=== PATIENT | female | born 1980 | race Caucasian/White ===

== ENCOUNTER 2023-10-15 21:48 | Emergency (ER) | payer SELFPAY ==
[~2023-10-15] VITALS: Ht 157.5 cm; Wt 88.2 kg
[~2023-10-15 21:48] MED LIST: NORCO 325 MG-51 TAB PO; ZOFRAN ODT4 MG PO
[2023-10-15 22:04] VITALS: TEMP 98
[2023-10-15] MEDS ORDERED: Ondansetron 4 MG/2 ML VIAL IV ONE (23:45)
[2023-10-15] MEDS ORDERED: Ketorolac 15 MG/ML VIAL IV ONE (23:45)
[2023-10-16 00:04] LABS: COLLECTION METHOD CLEAN CATCH
[2023-10-16 00:27] LABS: BASO % 0.5 % (0.0-2.0); EOS # 0.5 K/mm3 (0.0-0.7); EOS % 8.2 % (0.0-4.0); GRAN # 2.9 K/mm3 (1.4-6.5); GRAN % 46.9 % (42.2-75.2); HEMATOCRIT 37.8 % (37.0-47.0); HEMOGLOBIN 12.8 g/dl (12.5-16.0); LYMPH # 2.4 K/mm3 (1.2-3.4); LYMPH % 39.3 % (20.0-51.0); MEAN CELL VOLUME 94 fl (80.0-100.0); MEAN CORPUSCULAR HEMOGLOBIN 32 pg (27-31); MEAN CORPUSCULAR HGB CONC 34 g/dl (33.0-37.0); MEAN PLATELET VOLUME 9.8 fl (7.4-10.4); MONO # 0.3 K/mm3 (0.1-0.6); MONO % 4.8 % (1.7-9.3); PLATELET COUNT 198 K/mm3 (130-400); RED BLOOD COUNT 4.04 M/mm3 (4.10-5.30); REDCELL DISTRIBUTION WIDTH-CV 12.4 % (11.5-14.5)
[2023-10-16 00:43] LABS: ALBUMIN 3.8 g/dL (3.5-5.0); BILIRUBIN,TOTAL 0.3 mg/dL (0.2-1.2); CALCIUM 8.7 mg/dL (8.4-10.2); CREATININE, serum 0.81 mg/dL (0.57-1.11); POTASSIUM 3.7 mEq/L (3.5-4.5); TOTAL PROTEIN 7.3 g/dl (6.2-8.1)
[2023-10-16 00:54] LABS: URINE APPEARANCE CLEAR (CLEAR/HAZY); URINE BLOOD 2+ (NEGATIVE); URINE COLOR YELLOW (YELLOW); URINE GLUCOSE NEGATIVE (NEGATIVE); URINE KETONE NEGATIVE (NEGATIVE); URINE NITRATE NEGATIVE (NEGATIVE); URINE PROTEIN(semi-quant) NEGATIVE (NEGATIVE); URINE UROBILINOGEN 0.2 E.U/dL (0.2-1.0)
[2023-10-16] MEDS ORDERED: Iohexol 300 - 100 ML VIAL IV ONE (01:30)
[2023-10-16] MEDS ORDERED: NS 50 ML IV ONE (01:31)
[2023-10-16] MEDS ORDERED: BENTYL 10MG10 MG/CAP PO (02:11)
[2023-10-16] MEDS ORDERED: ZOFRAN ODT4 MG PO (02:14)
[2023-10-16] MEDS ORDERED: Home Ondansetron ODT 4 MG #2 ODT/PACK PO ONE (02:15)
[2023-10-16 02:26] VITALS: BP 158/92; PULSE 66
== END 2023-10-16 02:26 | disposition home or self-care (01) ==
LOC: COL.ER 21:48
PROVIDERS: Emergency Medicine
DX: R10.31 Right lower quadrant pain (principal)
CPT/HCPCS: J1885; J2405; Q9967